=== PATIENT | male | born 1970 | race Caucasian/White ===

== ENCOUNTER 2016-11-03 09:47 | Emergency (ER) | payer BC ==
[~2016-11-03] VITALS: Ht 175.3 cm; Wt 92.7 kg
[~2016-11-03 09:47] MED LIST: COZA100T PO; MECL-62 PO
[2016-11-03 09:58] VITALS: BP 151/106; PULSE 85; RESP 16; TEMP 97.9; O2SAT 98
--- NOTE | 2016-11-03 10:24 | PD ---
HPI Chief Complaint: Exposure to Blood/Body Fluids Time Seen by Provider: 10:12 Travel History International Travel<30 days: No Contact w/Intl Traveler<30days: No Traveled to known affect area: No History of Present Illness HPI 45-year-old male was stuck with a needle on the left index finger. Patient states that the incident happened yesterday afternoon around 4:00. Patient states that he was cleaning a sharp container which contained used needles. Patient states that he was stuck with a needle through his glove. Patient states that he washed the area well with soap and water. Patient states that the needle was dry and no fresh blood visible. Patient states that he is up-to- date with TD booster. Patient states that he had hepatitis B vaccine series in the past. PFSH Past Medical History Cardiovascular Problems: Yes (HX HTN) Diminished Hearing: No Hypertension: Yes Immunizations Current: Yes Past Surgical History Abdominal Surgery: Yes (HERNIA REPAIR) Oral Surgery: Yes (RIGHT HIP REPLACEMENT) Tonsillectomy: Yes Social History Alcohol Use: Yes (OCCAS) Tobacco Use: No Substance Use: No Allergies-Medications (Allergen,Severity, Reaction): Coded Allergies: No Known Allergies (Verified , 11/03/16) Reported Meds & Prescriptions Reported Meds & Active Scripts Active No Active Prescriptions or Reported Medications Review of Systems General / Constitutional: No: Fever Eyes: No: Visual changes HENT: No: Headaches Cardiovascular: No: Chest Pain or Discomfort Respiratory: No: Shortness of Breath Gastrointestinal: No: Abdominal Pain Genitourinary: No: Dysuria Musculoskeletal: No: Pain Skin: No Rash Neurologic: No: Weakness Psychiatric: No: Depression Endocrine: No: Polydipsia Hematologic/Lymphatic: No: Easy Bruising Physical Exam Narrative GENERAL: Well-nourished, well-developed patient. SKIN: Focused skin assessment warm/dry. HEAD: Normocephalic. EYES: No scleral icterus. No injection or drainage. NECK: Supple, trachea midline. No JVD or lymphadenopathy. CARDIOVASCULAR: Regular rate and rhythm without murmurs, gallops, or rubs. RESPIRATORY: Breath sounds equal bilaterally. No accessory muscle use. GASTROINTESTINAL: Abdomen soft, non-tender, nondistended. MUSCULOSKELETAL: No cyanosis, or edema. BACK: Nontender without obvious deformity. No CVA tenderness. Examination of the left index finger reveals no active bleeding. No redness or swelling. Data Data Last Documented VS Vital Signs Date Time Temp Pulse Resp B/P Pulse Ox O2 Delivery O2 Flow Rate FiO2 11/03/16 09:58 97.9 85 16 151/106 98 MDM Medical Decision Making Medical Screen Exam Complete: Yes Emergency Medical Condition: Yes Differential Diagnosis Differential diagnosis including needlestick left index finger. Narrative Course 45-year-old male with stuck with a used needle to left index finger yesterday. Exposure protocol followed. I would not recommend HIV prophylaxis at this point. Diagnosis Primary Impression: Needle stick injury Additional Instructions: Needle stick protocol started. Patient will be follow[facility] with [facility]. Scripts No Active Prescriptions or Reported Meds Disposition: 01 DISCHARGE HOME Condition: Stable Norm Santamaria MD Nov 03, 2016 10:24
== END 2016-11-03 11:06 | disposition home or self-care (01) ==
LOC: PHED 09:47
DX: S61.231A Puncture wound without foreign body of left index finger without damage to nail, initial encounter (principal); I10 Essential (primary) hypertension; W46.0XXA Contact with hypodermic needle, initial encounter; W26.8XXA Contact with other sharp object(s), not elsewhere classified, initial encounter; Y93.89 Activity, other specified; Y92.9 Unspecified place or not applicable; Z96.641 Presence of right artificial hip joint
CPT/HCPCS: 86317; 86703; 86803; 99283